=== PATIENT | male | born 1955 | race Caucasian/White ===

== ENCOUNTER 2017-11-23 21:25 | Emergency (ER) | payer BC, OTHER ==
[~2017-11-23] VITALS: Ht 177.8 cm; Wt 83.9 kg
[~2017-11-23 21:25] MED LIST: VALTREX 500 MG500 MG PO; ZOCOR80 MG PO
[2017-11-23 21:32] VITALS: BP 161/102
[2018-03-18] MEDS ORDERED: AMBIEN 5 MG TABL5 M1 PO (10:30)
[2018-03-18] MEDS ORDERED: MELOXICAM15 MG PO (10:30)
[2018-03-18] MEDS ORDERED: PRINZIDE 20-251 EACH PO (10:31)
[2018-03-18] MEDS ORDERED: PROVIGIL 200 M200 M1 PO (10:31)
[2018-05-14] MEDS ORDERED: GABAPENTIN 100100 MG PO (21:42)
[2018-05-14] MEDS ORDERED: CENTRUM SILVER1 EAC2 PO (21:42)
[2018-05-14] MEDS ORDERED: GLUCOSAMINE-CH1 EA25 PO (21:43)
[2018-05-14] MEDS ORDERED: VITAMIN D1000 UNI1 PO (21:43)
[2018-05-14] MEDS ORDERED: FOLIC ACID1 MG PO (21:43)
[2018-05-14] MEDS ORDERED: FISH OIL 1,001000 M2 PO (21:44)
[2018-05-14] MEDS ORDERED: TUMERIC PO (21:46)
== END 2017-11-23 22:23 | disposition home or self-care (01) ==
LOC: ER 21:25
DX: S61.217A Laceration without foreign body of left little finger without damage to nail, initial encounter (principal); S61.411A Laceration without foreign body of right hand, initial encounter; W25.XXXA Contact with sharp glass, initial encounter; Y93.89 Activity, other specified; Y92.89 Other specified places as the place of occurrence of the external cause; Y99.8 Other external cause status

== ENCOUNTER → 2018-03-18 | Outpatient (CLI) | payer BC, OTHER ==
[~2018-03-18] VITALS: Ht 177.8 cm; Wt 81.6 kg
[~2018-03-18] MED LIST changes: +AMBIEN 5 MG TABL5 M1 PO; +MELOXICAM15 MG PO; +PRINZIDE 20-251 EACH PO; +PROVIGIL 200 M200 M1 PO
--- NOTE | ~2018-03-18 | HPC ---
[facility] [address] [place] [address] PAIN MANAGEMENT CONSULTATION Name: JUSTIN LLANES [facility] [id number] Admission: 03/18/18 Attend Phys: Christopher Shirley DO Discharge: Date of : 55 Report #: [id number] THIS REPORT FOR: //name// CC: Munir Richards SENIOR CENTER MANAGER DATE OF SERVICE: 03/18/2018 CHIEF COMPLAINT: Low back pain, right lower extremity pain with paresthesias. HISTORY OF PRESENT ILLNESS: As you know, the patient is a very pleasant 62-year-old male who has been referred to our service by neurosurgery of [facility]'s nurse practitioner Susie for evaluation for lumbar radiculopathy involving right lower extremity. The patient has changes in his lumbar spine at the L4-L5 level that leads to hyylwimd-kc-geuxxy central canal stenosis, also has fairly significant arthritic changes that have caused spondylolisthesis of L4 on L5, believed to be the source of his symptoms. Interestingly enough, the patient indicates pain on the right side, though his pathology on MRI appears to be mainly -sided. The patient sought evaluation from Neurosurgery, they have advised the patient to try conservative treatments before moving forward with surgical options. The patient indicates pain pattern as continuous with intermittent spikes, describes the pain as shooting, sharp, numbness and tingling, places current pain score 9/10, daily average at 7-9/10, worst pain has been 10/10. The patient states that bending, sitting, standing wrong way, moving in certain directions exacerbate the symptoms; repositioning tends to improve pain. He has been referred to our clinic to discuss options for treatment for suspected lumbar radiculopathy involving right lower extremity. PAST MEDICAL HISTORY: 1. Hypertension. 2. Degenerative joint disease. 3. Osteoarthritis. 4. Dyslipidemia. 5. Herpes simplex. PAST SURGICAL HISTORY: Left ACL construction in 1988. SOCIAL HISTORY: The patient denies tobacco, IV or illicit drug use. He reports 4 alcoholic beverages per week. He is an digital design engineer. He is working, not receiving workmen's compensation nor is trying to obtain disability benefits. He is unaccompanied at the visit today. REVIEW OF SYSTEMS: Positive for wearing corrective eyewear, tinnitus, low back [facility] [address] [place] [address] PAIN MANAGEMENT CONSULTATION Name: JUSTIN LLANES Room #: REG [place] Fuller#: [id number] Admission: 03/18/18 Attend Phys: Christopher Shirley DO Discharge: Date of : 55 Report #: [id number] pain, right lower extremity pain and paresthesias, intermittent left lower extremity pain, numbness and tingling. All other review of systems negative per 12-point review of systems other than those listed in history of present illness. Pain impact score 24/70 indicating mgvv-zp-skkgbenu interference of daily activities secondary to pain. ALLERGIES: MORPHINE. CURRENT MEDICATIONS: Simvastatin 80 mg once a day, lisinopril/hydrochlorothiazide 20/12.5 mg once a day, meloxicam 15 mg once a day, zolpidem 5 mg p.o. at bedtime, modafinil 200 mg once a day, valacyclovir 500 mg once a day. IMAGING: MRI lumbar spine obtained on 03/03/2018 shows disk desiccation and small disk bulge at L1-L2, small annular tear. L3-L4, moderate circumferential disk bulge impressing upon the ventral thecal sac, moderate bilateral facet arthropathy and ligamentum flavum hypertrophy resulting in moderate central canal stenosis. Moderate bilateral neural foraminal narrowing at L3-L4, circumferential disk bulge eccentric to the right impressing upon the ventral thecal sac, moderate bilateral facet and ligamentum flavum hypertrophy. No significant central canal stenosis. Hjvn-eg-oluexbtm bilateral neural foraminal tapering L4-L5, grade 1 anterolisthesis, severe bilateral facet arthrosis, left greater than right. Large intraspinal synovial cyst emanating from the left. Combination results in ryccjhnp-wj-mcerzb central canal stenosis. Significant mass effect upon the central left L5 nerve root, narrowing of the left lateral recess. Moderate bilateral neural foraminal narrowing. L5-S1, small circumferential disk bulge, moderate bilateral facet changes, amkyguxm-nk-ueqlkw left and moderate right neural foraminal stenosis. PHYSICAL EXAMINATION: VITAL SIGNS: Blood pressure 117/80, pulse 67, respiratory rate 14 and unlabored. The patient is 98% on room air. Height 5 feet 10 inches tall, weight 180 pounds, BMI calculated 25.8. GENERAL: Well-developed, well-nourished, well-hydrated, 62-year-old male. He appears his stated age. He is placing current pain score as high as 7-9/10. HEENT: Normocephalic, atraumatic. Pupils are equal, round, reactive to light. Extraocular muscles are intact. Sclerae are nonicteric without injection. NEUROLOGIC: Cranial nerves 2-12 grossly intact. Speech is fluent. The patient deemed a good historian. LUNGS: Clear. No wheezes, rhonchi or rales. CARDIOVASCULAR: Regular. No appreciable gallop or rub. ABDOMEN: Soft, nontender, nondistended, normoactive bowel sounds. EXTREMITIES: Show no clubbing, no cyanosis, no edema. MUSCULOSKELETAL: Seated straight leg raising is negative. Supine straight leg [facility] [address] [place] [address] PAIN MANAGEMENT CONSULTATION Name: SHRADDHAJUSTIN Room #: REG [facility]#: [id number] Admission: 03/18/18 Attend Phys: Christopher Shirley DO Discharge: Date of : 55 Report #: [id number] raising is positive on the right. Deondre test is negative. Modified Gaenslen's is positive for axial back pain. Ankle clonus negative. Babinski is negative. Muscle bulk and tone is symmetrical in lower extremities. Deep tendon reflexes are equal and symmetrical at patella and Achilles. Gait, mildly antalgic, favoring right lower extremity over left. ASSESSMENT: 1. Symptomatic lumbar radiculopathy. 2. Spinal stenosis of lumbar spine. 3. Severe neural foraminal stenosis of the lumbar spine. 4. Displacement of lumbar intervertebral disk with radiculopathy. 5. Lumbosacral spondylosis with radiculopathy. 6. Lumbar degeneration. 7. Chronic intractable pain. PLAN: 1. Based on today's physical exam and history the patient has provided, the description the patient uses in regards to pain, location of symptoms and distribution, the likely source of the patient's pain is lumbar radiculopathy. Interestingly, the patient has majority of the findings on the left side on the MRI. There is concern that the right side is responding to mass effect within the central canal. The patient has been requested to see our clinic about epidural injections under fluoroscopic guidance to trial conservative treatment before surgical options are entertained. We have discussed with the patient the following options for treatment to be inclusive. We discussed physical therapy, stretching exercises, core strengthening as a treatment option. We discussed medication management with addition of a neuropathic pain medication in the form of either gabapentin, Lyrica, nortriptyline or amitriptyline. We discussed the requested epidural injections under fluoroscopic guidance, spinal cord stimulator therapy and ultimately surgical options. After reviewing the risks and benefits of all the proposed treatment options, the patient chose to begin with an epidural injection under fluoroscopic guidance. The patient and I discussed the risks and benefits of the procedure. At this time, the patient wishes to delay until tomorrow morning to undergo the procedure. He has activities he has to participate today and cannot remain at a light activity over the next 12 hours. We will have him return to our clinic tomorrow morning to undergo this epidural injection. 2. The patient was provided no changes in medication therapy. The patient is to continue current medical management as currently prescribed. 3. We will see the patient back in followup visit to undergo the first in a series of epidural injections tomorrow morning on 03/19/2018 at 7:45 a.m. At that time, the patient will be advised risks and benefits of the procedure. We will proceed with the requested epidural injection. [address] [address] PAIN MANAGEMENT CONSULTATION Name: JUSTIN LLANES Room #: REG [place] Fuller#: [id number] Admission: 03/18/18 Attend Phys: Christopher Shirley DO Discharge: Date of : 55 Report #: [id number] 4. We wish to thank nurse practitioner, Susie for the referral of patient to our clinic. We will keep you apprised of his response to treatment after we address his suspected lumbar radiculopathy. Again, we wish to thank you for the opportunity to see the patient in consultation. By: [id number] Christopher Shirley DO /zaki
[2018-03-18 10:33] VITALS: BP 117/80
== END ==
LOC: PAIN 08:21
DX: M47.27 Other spondylosis with radiculopathy, lumbosacral region (principal); M48.062 Spinal stenosis, lumbar region with neurogenic claudication; M51.16 Intervertebral disc disorders with radiculopathy, lumbar region; G89.4 Chronic pain syndrome; I10 Essential (primary) hypertension

== ENCOUNTER → 2018-03-19 | Outpatient (CLI) | payer BC, OTHER ==
[~2018-03-19] VITALS: Ht 177.8 cm; Wt 81.0 kg
--- NOTE | ~2018-03-19 | HPC ---
[facility] [place] [address] PAIN MANAGEMENT CONSULTATION Name: JUSTIN LLANES Room #: REG [facility]#: [id number] Admission: 03/19/18 Attend Phys: Christopher Shirley DO Discharge: Date of : 55 Report #: [id number] THIS REPORT FOR: //name// CC: Munir Corbett DATE OF SERVICE: 03/19/2018 REFERRING PHYSICIAN: Nurse practitioner, Susie Corbett. CHIEF COMPLAINT: Low back pain, right lower extremity pain and paresthesias. HISTORY OF PRESENT ILLNESS: As you know, the patient is a very pleasant 62-year-old male referred to our clinic by Susie Corbett, nurse practitioner at [facility] of [facility] to trial epidural injections under fluoroscopic guidance. The patient reports pain that radiates from the low back down the right leg. He was seen in consultation and advised of treatment options. He chose to undergo epidural injection. He returns today to undergo the first in the series. He is reporting pain today at around 9/10. ALLERGIES: MORPHINE. CURRENT MEDICATIONS: Simvastatin, lisinopril, hydrochlorothiazide, Meloxicam, zolpidem, modafinil and valacyclovir. SOCIAL HISTORY: The patient denies tobacco, alcohol, IV or illicit drug use. He is an application design engineer, is working, not receiving workmen's compensation, unaccompanied today. IMAGING DATA: No new imaging available. PHYSICAL EXAMINATION: VITAL SIGNS: Blood pressure 117/80, pulse 67 and respiratory rate 14 and unlabored. The patient is 98% on room air. Height 5 feet 10 inches tall, weight 180 pounds and BMI calculated 25.8. GENERAL: Well-developed, well-nourished, well-hydrated 62-year-old male appearing stated age, placing current pain score 9/10. HEENT: Normocephalic and atraumatic. Pupils equal, round and reactive to light. EXTREMITIES: Show no clubbing, no cyanosis and no edema. MUSCULOSKELETAL: Seated straight leg raising negative. Supine straight leg raising positive right. Deondre's test negative. Modified Gaenslen's positive for axial low back pain. Ankle clonus negative. Babinski is negative. [address] [address] PAIN MANAGEMENT CONSULTATION Name: JUSTIN LLANES Room #: REG [facility]#: [id number] Admission: 03/19/18 Attend Phys: Christopher Shirley DO Discharge: Date of : 55 Report #: [id number] ASSESSMENT: 1. Symptomatic lumbar radiculopathy. 2. Spinal stenosis of the lumbar spine. 3. Severe neural foraminal stenosis of the lumbar spine. 4. Displacement of the lumbar intervertebral disk with radiculopathy. 5. Lumbosacral spondylosis with radiculopathy. 6. Lumbar degeneration. 7. Chronic intractable pain. PLAN: 1. The patient returns today in followup visit in preparation to undergo first in the series of epidural injections. The patient has been advised of the risks and the benefits of this procedure. These risks include but are not necessarily limited to bleeding, bruising, infection, worsening pain, no relief of pain, also risk of temporary or permanent muscle weakness, temporary or permanent nerve damage, possible paralysis and . The patient states understood and wished to proceed. 2. No medication changes made at today's visit. The patient to continue current medical therapy as previously prescribed. 3. We will see the patient back in followup visit, 31 days from today for possible next in the series of epidural injections. PROCEDURE NOTE DESCRIPTION OF PROCEDURE: Right L5-S1 paramedian epidural steroid injection under fluoroscopic guidance. This is the first procedure of the first series that the patient is undergoing. After obtaining written consent, the patient was taken back to the fluoroscopy suite, placed in a prone position with pillow under the abdomen to decrease lumbar lordosis. The skin overlying the lumbosacral area was then prepped and draped in aseptic fashion. The L5-S1 vertebral interspace was then identified by AP fluoroscopy. The skin and subcutaneous tissue overlying the target site of injection was anesthetized with 3 mL 1% lidocaine. A 20-gauge 3-1/2 inch Tuohy needle was then advanced under fluoroscopic guidance towards the epidural space using a right paramedian approach. The epidural space was identified using loss of resistance to air technique. After negative aspiration for heme or cerebrospinal fluid, a total of 1 mL of Omnipaque was injected. A lumbar epidurogram was confirmed using both AP and lateral fluoroscopy. After negative aspiration for heme or cerebrospinal fluid, 5 mL of a solution containing 2 mL 40 mg per mL, 80 mg total triamcinolone, 3 mL lidocaine 1% was injected in increments. Contrast spread was noted posterior epidural space. The needle was then retracted approximately half way and needle tract flushed with 1 mL of 1% lidocaine. Needle was then removed. There were [facility] [address] [place] [address] PAIN MANAGEMENT CONSULTATION Name: JUSTIN LLANES Room #: REG [facility]#: [id number] Admission: 03/19/18 Attend Phys: Christopher Sihrley DO Discharge: Date of : 55 Report #: [id number] no apparent sensory or motor deficits in the lower extremity following the procedure. A sterile bandage was placed over the injection site. The heart rate, pulse, oximetry and blood pressure were continuously monitored after the procedure. There were no apparent complications. The patient tolerated the procedure well and was carefully escorted to the recovery room in stable condition. There were no apparent complications. After meeting discharge criteria, the patient was then discharged home. By: [id number] Christopher Shirley DO /nt
[2018-03-19 08:01] VITALS: BP 130/87
== END ==
LOC: PAIN 05:30
DX: M51.16 Intervertebral disc disorders with radiculopathy, lumbar region (principal); M48.061 Spinal stenosis, lumbar region without neurogenic claudication; M47.27 Other spondylosis with radiculopathy, lumbosacral region; G89.29 Other chronic pain; Z79.899 Other long term (current) drug therapy; Z88.8 Allergy status to other drugs, medicaments and biological substances; Z98.890 Other specified postprocedural states

== ENCOUNTER → 2018-04-08 | Outpatient (CLI) | payer BC, OTHER ==
[~2018-04-08] VITALS: Ht 177.8 cm; Wt 79.1 kg
--- NOTE | ~2018-04-08 | HPC ---
[facility] [address] [place] [address] PAIN MANAGEMENT CONSULTATION Name: JUSTIN LLANES Room #: REG [facility]#: [id number] Admission: 04/08/18 Attend Phys: Christopher Shirley DO Discharge: Date of : 55 Report #: [id number] THIS REPORT FOR: //name// CC: Munri Ramires DATE OF SERVICE: 04/08/2018 CHIEF COMPLAINT: Low back pain, right lower extremity pain, and paresthesias. HISTORY OF PRESENT ILLNESS: As you know, the patient is a very pleasant 62-year-old male referred to our clinic by Susie Ramires, nurse practitioner with [facility]surgery of [facility] for trial epidural injections. The patient underwent epidural injection per their request on 03/20/2018. The patient reports symptom improvement of 0%. He returns today with 7/10 pain. States pain is constant, sharp, stabbing, aching, numbness and tingling. Indicates pain radiates all the way down the right leg. He returns in followup visit, having no improvement in symptoms with the initial epidural injection, precluding him from undergoing future epidural injections per his third [employer] party payer restrictions. He returns to discuss other options. ALLERGIES: MORPHINE. CURRENT MEDICATIONS: Simvastatin, lisinopril, hydrochlorothiazide, Meloxicam, zolpidem, modafinil, and valacyclovir. SOCIAL HISTORY: The patient denies tobacco, alcohol, IV or illicit drug use. 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 IMAGING: No new imaging available. PHYSICAL EXAMINATION: VITAL SIGNS: Blood pressure 128/84, pulse 72, respiratory rate 14 and unlabored. The patient is 96% on room air. Height 5 feet 10 inches tall, weight is 174.4 pounds, BMI calculated 25.0. GENERAL: Well-developed, well-nourished, well-hydrated 62-year-old male. He appears his stated age. He is placing his pain score at 7/10. HEENT: Normocephalic, atraumatic. Pupils equal, round, reactive to light. EXTREMITIES: Show no clubbing, no cyanosis, and no edema. MUSCULOSKELETAL: Lower extremity strength is symmetrical, 5/5. He is intact to light touch from L1 through S2 dermatomes. Seated straight leg raising negative. Supine straight leg raising positive right. Deondre's test negative. Modified Gaenslen's positive for axial back pain. Ankle clonus negative. [address] [address] PAIN MANAGEMENT CONSULTATION Name: JUSTIN LLANES Room #: REG [facility]#: [id number] Admission: 04/08/18 Attend Phys: Christopher Shirley DO Discharge: Date of : 55 Report #: [id number] Babinski is negative. ASSESSMENT: 1. Symptomatic lumbar radiculopathy. 2. Spinal stenosis of lumbar spine. 3. Severe neural foraminal stenosis of the lumbar spine. 4. Displacement of lumbar intervertebral disk with radiculopathy. 5. Lumbosacral spondylosis with radiculopathy. 6. Lumbar degeneration. 7. Chronic intractable pain. PLAN: 1. The patient returns today in followup visit where we have discussed the lack of efficacy with the initial epidural injection. We reviewed the fluoroscopic imaging from the injection. It was noted the patient had good epidural spread of the contrast agent indicating that the injection was in the appropriate area. Unfortunately, the patient has not noted improvement with his symptoms. This precludes us from providing future epidural injections to address this issue due to third [employer] party payer restrictions requiring greater than 50% improvement in overall pain before moving forward with the next in the series. Given the fact that he received no improvement, I would recommend that we look towards other options. 2. The patient will be started on Lyrica. We will trial Lyrica as a way to address his neuropathic symptoms. We will start at 75 mg at night for 1 week, then increase to 150 mg. The patient was advised to watch for side effects of somnolence, decreased mental acuity, disorientation, confusion with the use of the medication. If he notes any side effects, contact our clinic after reducing his dose to the lower level. The patient can continue the medication if he notes good improvement. We will write the prescription based on his level of medication required to provide efficacy. 3. I have requested that the patient contact his neurosurgery team and be seen in followup visit. The patient will likely need further evaluation from a surgical standpoint given the lack of efficacy with epidural injections. We will be trying medication management, but given the severity of his findings, he may ultimately need decompressive surgery to address his ongoing pain issues. We will defer to the neurosurgery team to discuss this further. 4. We will see the patient back in followup visit on an as needed basis. If he is doing well with Lyrica, we will continue the medication via telephone conversation. By: [id number] Christopher Shirley DO /nt
[2018-04-08 08:02] VITALS: BP 128/84
== END ==
LOC: PAIN 06:49
DX: M47.27 Other spondylosis with radiculopathy, lumbosacral region (principal); M51.16 Intervertebral disc disorders with radiculopathy, lumbar region; M48.062 Spinal stenosis, lumbar region with neurogenic claudication; G89.4 Chronic pain syndrome

== ENCOUNTER → 2019-01-13 | Outpatient (CLI) | payer BC, OTHER ==
[~2019-01-13] VITALS: Ht 177.8 cm; Wt 79.4 kg
[~2019-01-13] MED LIST changes: +ASPIRIN325 PO; +CENTRUM SILVER1 EAC2 PO; +FISH OIL 1,001000 M2 PO; +FOLIC ACID1 MG PO; +GABAPENTIN 100100 MG PO; +GLUCOSAMINE-CH1 EA25 PO; +LISINOPRIL-HCT1 EAC1 PO; +MOBIC15 MG PO; +NEURONTIN 300300 M1 PO; +TUMERIC PO; +VITAMIN D1000 UNI1 PO
[2019-01-13 09:47] VITALS: BP 130/83
[2019-01-13 11:30] VITALS: BP 126/85
[2019-01-13 11:35] VITALS: BP 130/77
[2019-01-13 11:40] VITALS: BP 128/73
[2019-01-13 11:44] VITALS: BP 125/76
[2019-01-13 11:49] VITALS: BP 132/75
--- NOTE | 2019-01-13 12:35 | NUR ---
LATE ENTRY- RECEIVED PT FROM IR AT 1205. PT AWAKE, ALERT IN NAD, VSS, NSR ON MONITOR, RESP EVEN UNLABORED. LUMBAR PUNCTURE SITE WITH CLEAN DRY DRESSING INTACT. PT STATES HE CONTINUES TO HAVE THE SAME LOW BACK PAIN HE HAD PRE OP. 01/09. PT GIVEN MEAL TRAY, JUICE AND COFFEE. CALLING FOR RIDE HOME
--- NOTE | 2019-01-13 15:11 | NUR ---
IV DC'D. AMBULATED IN CV HOLDING WITH STEADY GAIT. PT FULLY AWAKE AND ALERT. LUMBAR SITE DRESSING CLEAN DRY INTACT. DRIVING PT HOME
== END | disposition home or self-care (01) ==
LOC: SPEC 08:55
DX: M71.38 Other bursal cyst, other site (principal); M51.36 Other intervertebral disc degeneration, lumbar region; I10 Essential (primary) hypertension; E78.5 Hyperlipidemia, unspecified; Z98.890 Other specified postprocedural states; Z79.899 Other long term (current) drug therapy; Z87.891 Personal history of nicotine dependence; Z88.6 Allergy status to analgesic agent; Z79.82 Long term (current) use of aspirin